=== PATIENT | male | born 1985 | race Two or more races ===

== ENCOUNTER 2019-10-29 11:40 | Emergency (ER) | payer MEDICAID ==
[~2019-10-29] VITALS: Ht 172.7 cm; Wt 72.6 kg
[2019-10-29 11:40] VITALS: BP 136/94
--- NOTE | 2019-10-29 11:40 | NUR ---
ED Nurse Note: Pt brought in by ambulance d/t probable overdose. Per EMS, upon arrival, pt had respirations of 4/min and was unresponsive. Pt was being assessed and about to have narcan administered when he woke up and became A+Ox4. Pt stated that he took heroine. Upon arrrival to ED, respirations even and unlabored on room air and vitals are stable as documented. Pt is A+Ox4, speaking in full sentences. Pt is calm, polite, and cooperative. Pt states that he does not want anything done for him and he wants to leave because he needs to get to his hotel room. Made ED MD aware.
--- NOTE | 2019-10-29 11:45 | NUR ---
ED Nurse Note: Pt denies suicidal ideation/homicidal ideation
--- NOTE | 2019-10-29 11:48 | Emergency Room Report ---
History of Present Illness General Chief Complaint: Overdose Source: Patient Present Illness HPI 34-year-old male history of opioid abuse, presents altered mental status that has since resolved patient thinks he may have smoked too much heroin/fentanyl he states it may have been mixed, he states it all occurred prior to arrival he feels fine and wants to leave, his condition was aggravated by drugs alleviated by not taking drug severity was severe lasting unknown amount of time patient presents via EMS no naloxone was given Patient History Past Medical History: see triage record Social History: Reports: smoking, alcohol use, drug use Reviewed Nursing Documentation: PMH: Agreed; PSxH: Agreed Nursing Documentation-PM Past Medical History: No History, Except For Review of Systems All Other Systems: negative except mentioned in HPI Physical Exam Vital Signs Date Time Temp Pulse Resp B/P (MAP) Pulse Ox O2 Delivery O2 Flow Rate FiO2 10/29/19 11:34 99.0 119 18 136/94 (108) 99 Room Air Sp02 EP Interpretation: reviewed, normal General Appearance: well appearing, no apparent distress, alert Head: normocephalic, atraumatic Eyes: bilateral eye PERRL, bilateral eye EOMI ENT: uvula midline, moist mucus membranes Neck: supple, thyroid normal, supple/symm/no masses Respiratory: lungs clear, no respiratory distress, no retraction, no accessory muscle use Cardiovascular #1: normal peripheral pulses, regular rate, rhythm, no edema, no gallop, no murmur Gastrointestinal: non tender, soft, no guarding, no rebound Musculoskeletal: normal inspection Neurologic: alert, oriented x3 Psychiatric: mood/affect normal Skin: no rash, warm/dry Medical Decision Making Diagnostic Impression: Primary Impression: Drug overdose Qualified Codes: T50.901A - Poisoning by unspecified drugs, medicaments and biological substances, accidental (unintentional), initial encounter ER Course 34-year-old male presents with most likely an accidental overdose, patient wants to leave AGAINST MEDICAL ADVICE, differential diagnosis includes drug overdose, heroin abuse, opioid abuse The patient has requested to leave the ED against medical advice. The patient reason(s) for leaving include, but are not limited to, the following: "I have to get to my motel or my stuff will be taken." I believe this patient is of sound mind and competent to refuse medical care. The patient is responding and asking questions appropriately. The patient is oriented to person, place and time. The patient is not psychotic, delusional, suicidal, homicidal or hallucinating. The patient demonstrates a normal mental capacity to make decisions regarding their healthcare. The patient is clinically sober and does not appear to be under the influence of any illicit drugs at this time. The patient has been advised of the risks, in layman terms, of leaving AMA which include, but are not limited to , coma, permanent disability, loss of current lifestyle, delay in diagnosis. Alternatives have been offered - the patient remains steadfast in their wish to leave. The patient has been advised that should they change their mind they are welcome to return to this hospital, or any other, at any time. The patient understands that in no way does an AMA discharge mean that I do not want them to have the best medical care available. To this end, I have provided appropriate prescriptions, referrals, and discharge instructions. The patient did sign AMA paperwork. The above discussion was witnessed by another member of staff. Last Vital Signs Date Time Temp Pulse Resp B/P (MAP) Pulse Ox O2 Delivery O2 Flow Rate FiO2 10/29/19 11:34 99.0 119 18 136/94 (108) 99 Room Air Disposition: AGAINST MEDICAL ADVICE Condition: Stable Referrals: [facility] Patient Instructions: Opioid Use Disorder Additional Instructions: The patient was provided with discharge instructions, notified to follow-up with a primary care doctor and or specialist in the next 24-48 hours, and to return to the ED if they have worsening of their symptoms. Please note that this report is being documented using [employer] technology. This can lead to erroneous entry secondary to incorrect interpretation by the dictating instrument. Zeke Delgado MD Oct 29, 2019 11:48
--- NOTE | 2019-10-29 11:55 | NUR ---
AMA: Pt A+Ox4, states that he wants to leave. Per pt, he is staying in a hotel room and needs to go back befor 1300. Pt wants to help with discharge. Pt wants to walk to his hotel. Respirations even and unlabored on room air. Vitals stable as documented. [place] and juices given to patient upon discharge. ED MD spoke with patient about risks and benefits of going AMA, but pt still wants to go AMA SEE AMA FORM. Pt signed, ambulating with steady gait. IV site removed.
== END 2019-10-29 11:55 | disposition left against medical advice (07) ==
LOC: EDBD 11:40 → EMR 11:45
DX: T50.901A Poisoning by unspecified drugs, medicaments and biological substances, accidental (unintentional), initial encounter (principal); F17.200 Nicotine dependence, unspecified, uncomplicated; X58.XXXA Exposure to other specified factors, initial encounter; Y92.9 Unspecified place or not applicable
CPT/HCPCS: 99282